=== PATIENT | female | born 1940 | race Caucasian/White ===

== ENCOUNTER 2016-07-30 19:50 | Emergency (ER) | payer MEDICARE, OTHER ==
--- OUTSIDE RECORDS SUMMARY | 2016-07-30 20:42 | XMS REPORT | Continuity of Care Document ---
:1940 Author Organization [facility] ([facility]) Address [address] [place] [address] Phone [phone] Care Team Providers Name Role Phone Bernard Landry Primary Care Provider [phone] Source Comments This disclosure is being made pursuant to the Care Everywhere program, applicable federal and state laws, and may not contain all informaitonavailable regarding this patient.[facility] ([facility]) Active Allergies and Adverse Reactions Allergen Noted Date Severity Reactions Comments Cephalexin 03/08/2015 Angioedema Lip, mouth swelling/pain Ciprofloxacin 01/31/2015 Angioedema Hydrocodone-Acetaminophen 06/25/2012 Rash Ibuprofen 01/25/2015 Nausea & Vomiting Penicillin 01/25/2015 Angioedema Sulfa (Sulfonamide 03/22/2012 OTHER,Rash Dyspnea Antibiotics) Current Medications Prescription Sig. Disp. Refills Start End Status Date Date calcium carbonate (500 Take 1 tablet by Active mg Ca) 1250 mg -vitamin mouth daily D 200 unit per tablet hydrochlorothiazide 25 Take 1 Tab by 30 Tab 11 11/24/19 Active mg tablet mouth daily. 14 Indications: EDEMA furosemide 20 mg tablet Take 2 Tabs by 60 Tab 11 08/11/19 Active mouth daily. 15 Indications: HYPERTENSION losartan 50 mg tablet Take 1 Tab (50 90 Tab 3 09/23/19 Active mg total) by 15 mouth daily ELIQUIS 5 mg tablet 11 12/02/19 Active 15 polyethylene Take as directed 4000 mL 0 01/26/20 Active glycol-electrolyte 15 (NULYTELY) suspension magnesium citrate Take as directed 296 mL 0 01/26/20 Active solution 15 loperamide 2 mg capsule Take 1 capsule 90 capsule 1 02/27/20 Active (2 mg total) by 15 mouth 3 times daily Lactobacillus Take 1 capsule 60 capsule 1 02/27/20 Active acidophilus (FLORAJEN) (460 mg total) 15 460 mg (20 billion by mouth 2 times cell) capsule daily omeprazole 20 mg Take 1 capsule 90 capsule 3 03/29/20 Active enteric coated capsule (20 mg total) by 15 mouth daily fenofibrate 134 mg Take 1 capsule 90 capsule 3 11/30/19 Active capsule (134 mg total) 16 by mouth every morning before breakfast. sucralfate 1000 mg Take 1 tablet 120 tablet 11 11/30/19 Active tablet (1,000 mg total) 16 by mouth before meals and at bedtime. pravastatin 40 mg Take 1 tablet 90 tablet 3 11/30/19 Active tablet (40 mg total) by 16 mouth every evening. traZODone 50 mg tablet Take 1.5 tablets 135 tablet 3 03/11/20 Active (75 mg total) by 16 mouth at bedtime. tiZANidine 2 mg tablet Take 1 tablet (2 90 tablet 3 03/11/20 Active mg total) by 16 mouth 2 times daily as needed. traMADol 50 mg tablet Take 2 tablets 240 tablet 3 03/11/20 Active (100 mg total) 16 by mouth 4 times daily as needed. allopurinol 300 mg Take 1 tablet 90 tablet 3 03/11/20 Active tablet (300 mg total) 16 by mouth daily. nitrofurantoin Take 1 capsule 20 capsule 0 03/21/20 Active (MACROBID) 100 mg (100 mg total) 16 capsule by mouth 2 times daily. ciprofloxacin HCl 500 Take 1 tablet 20 tablet 0 04/04/20 Active mg tablet (500 mg total) 16 by mouth 2 times daily. HYDROcodone-acetaminoph Take 1 tablet by 60 tablet 0 04/04/20 Active en 5-325 mg per tablet mouth every 6 16 hours as needed. LORazepam 1 mg tablet Take 1 tablet (1 90 tablet 1 05/06/20 Active mg total) by 16 mouth at bedtime as needed. oxybutynin 5 mg tablet Take 1 tablet (5 180 tablet 3 05/06/20 Active mg total) by 16 mouth 2 times daily. ciprofloxacin HCl 500 Take 1 tablet 20 tablet 0 05/16/20 Active mg tablet (500 mg total) 16 by mouth 2 times daily. nystatin 100,000 Take 5 mL by 200 mL 1 06/06/19 Active unit/mL suspension mouth 4 times 17 daily. Swish and swallow. potassium chloride 10 Take 2 tablets 180 tablet 3 07/19/19 Active mEq XR tablet (20 mEq total) 17 by mouth daily. Takes 2 in the AM. potassium chloride 10 Take 3 tablets 180 tablet 0 04/24/20 Discontinued mEq XR tablet (30 mEq total) 16 017 by mouth 2 times daily. 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 Requires hospitalization for IV meds. Fever, unspecified 05/31/2013 Gout 05/22/2012 HTN (hypertension) 03/22/2012 Hyperlipidemia 03/22/2012 Chronic pain 03/22/2012 Most Recent Encounters Date Type Specialty Providers Description 07/22/2016 Office Visit [facility] Darien Gunderson, Chief Comp: Patient PA-C Reported Reason For Visit 07/18/2016 Refill [facility] Jimmy Cook Dx: Hypokalemia DO (Primary Dx) 06/12/2016 Orders/Notes [facility] Flores - [facility] Rosalba Sepulveda CMA 06/06/2016 Office Visit [facility] Jimmy Cook Dx: Thrush of mouth DO and esophagus (Primary Dx) 05/16/2016 Orders/Notes Family Practice Jimmy Cook Dx: Acute bronchitis, DO unspecified organism (Primary Dx) 05/16/2016 Telephone Franklin Flores [facility] Jimmy Cook, Chief Comp: Other DO 05/05/2016 Refill [facility] Flores [facility] Jimmy Cook Dx: Mixed incontinence DO (Primary Dx) 05/05/2016 Refill Franklin Flores - [facility] Jimmy Cook Dx: Primary insomnia DO (Primary Dx) 05/05/2016 Refill [facility] Rizwana Buck, Dx: Primary insomnia PA-C (Primary Dx) Social History Tobacco Use Types Packs/Day Years Used Date Never Smoker Smokeless Tobacco: Never Used Alcohol Use Drinks/Week oz/Week Comments No Last Filed Vital Signs Vital Sign Reading Time Taken Blood Pressure 108/78 06/06/2016 10:31 AM 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 Pulse 64 06/06/2016 10:31 AM 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 Temperature 36.8 C (98.3 F) 06/06/2016 10:31 AM 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 Respiratory Rate 18 06/06/2016 10:31 AM 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 Height 1.676 m (5' 6") 01/25/2015 1:50 PM CDT Weight 65.499 kg (144 lb 6.4 oz) 06/06/2016 10:31 AM 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 Body Mass Index 23.32 06/06/2016 10:31 AM 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 Oxygen Saturation 98% 04/27/2015 6:42 AM 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 Plan of Care Health Maintenance Due Date Last Done Comments Hepatitis B Vaccine (1 of 3 - Primary Series) 1940 Tdap Vaccine 1949 Td Vaccine 1956 Mammogram 1978 Colonoscopy 04/02/1988 Zoster Vaccine 1998 Osteoporosis Screening (DXA Bone Density) 2003 Pneumococcal Vaccine (1 of 2 - PCV13) 2003 Influenza Vaccine: Seasonal (#1) 12/17/2015 Lipid Disorder Screening 08/12/2019 08/11/2014 Results from Last 3 Months Not on file
[2016-07-30 22:07] LABS: Hematocrit 39.3 % (37.0-47.0); Hemoglobin 13.4 gm/dL (12.5-16.0); Mean Cell Volume 91.8 fl (78-100); Mean Corpuscular Hemoglobin 31.3 pg (27-31); Mean Corpuscular Hgb Conc 34.1 g/dl (32-36); Mean Platelet Volume 11.7 fl (6.0-9.5); Neutrophil # 7.4 K/mm3 (1.3-6.0); Neutrophil % 73.6 % (42-75.0); Platelet Count 212 K/mm3 (150-450); Red Blood Count 4.28 M/mm3 (4.2-5.4); Red Cell Distribution Width 12.8 % (11.5-14.0); White Blood Count 10.1 K/mm3 (4.0-10.5)
[2016-07-30 22:16] LABS: ALT 17 U/L (19-67); AST 16 U/L (0-48); Albumin * 4.5 gm/dl (3.4-5.0); Alkaline Phosphatase * 48 U/L (50-170); Anion Gap 16.6 mmol/L (6.8-13.8); Bilirubin, Total 0.4 mg/dL (0.0-1.1); Blood Urea Nitrogen 21 mg/dL (3-23); Calcium * 8.7 mg/dL (7.9-10.9); Carbon Dioxide 26.8 mmol/L (24-32.6); Chloride 99 mmol/L (97-106); Glucose * 126 mg/dL (70-110); Potassium 3.4 mmol/L (3.4-4.6); Sodium 139 mmol/L (132-142); Total Protein 7.3 gm/dL (6.2-8.2)
[2016-07-30] MEDS ORDERED: IBUPROFEN 600 MG TABLET PO ONE (23:21)
[2016-07-30] MEDS ORDERED: IBUPROFEN 600 MG TABLET ONE (23:24)
--- NOTE | 2016-07-30 23:30 | ERNOTE ---
Lower Extremity HPI - Narrative Date of Service: 07/30/16 - General Time Seen by Provider: 07/30/16 20:35 Source: patient, family Exam Limitations: no limitations - Immun/Allergies/Home Medications Immunizations: IMMUNIZATION HX Immunizations Up to Date Yes History of Influenza Vaccine Yes Hx Pneumococcal Vaccination Yes Allergies/Adverse Reactions: Allergies Allergy/AdvReac Type Severity Reaction Status Date / Time cefdinir Allergy Unknown Verified 12/25/15 09:53 cephalexin Allergy Unknown Verified 12/25/15 09:53 ciprofloxacin [From Cipro] Allergy Unknown Verified 12/25/15 09:53 ciprofloxacin HCl Allergy Unknown Verified 12/25/15 09:53 [From Cipro] Penicillins Allergy Unknown Verified 12/25/15 09:53 acetaminophen [From Vicodin] AdvReac Mild RASH ON Verified 12/25/15 09:53 CHEST, ARMS AND LEGS hydrocodone bitartrate AdvReac Mild rash to Verified 12/25/15 09:53 [From Vicodin] chest, arms, legs Sulfa (Sulfonamide AdvReac Mild RASH, SORE Verified 12/25/15 09:53 Antibiotics) TONGUE [Sulfa(Sulfonamide Antibiotics)] Home Medications: HOME MEDICATIONS Oxybutynin Chloride [Ditropan Xl] 5 mg PO DAILY 05/26/12 [Last Taken Unknown] Potassium Chloride [Klor-Con M10] 20 meq PO BID 05/26/12 [Last Taken Unknown] Allopurinol [Zyloprim] 100 mg PO DAILY 09/15/15 [Last Taken Unknown] Apixaban [Eliquis] 5 mg PO BID 09/15/15 [Last Taken 10/19/15] Furosemide [Lasix] 40 mg PO DAILY 09/15/15 [Last Taken Unknown] Amiodarone HCl [Cordarone] 200 mg PO DAILY 07/30/16 [Last Taken Unknown] LORazepam [Ativan] 1 mg PO TID PRN 07/30/16 [Last Taken Unknown] Omeprazole 20 mg PO DAILY 07/30/16 [Last Taken Unknown] Pravastatin Sodium 40 mg PO HS 07/30/16 [Last Taken Unknown] Sucralfate [Carafate] 1 g PO 07/30/16 [Last Taken Unknown] amLODIPine BESYLATE [Norvasc] 5 mg PO DAILY 07/30/16 [Last Taken Unknown] traZODone HCL [Desyrel] 25 mg PO HS 07/30/16 [Last Taken Unknown] - History of Present Illness Narrative: She presents with 24-hour history of pain in the posterior aspect of the right knee. Denies any trauma or fall she denies any excessive use of right knee. She complains of pain mostly in the posterior aspect of the right knee. In the popliteal fossa. His any fevers or chills at this time. Review of Systems - Review of Systems Constitutional: Present: no symptoms reported EYE: Present: no symptoms reported ENT: Present: no symptoms reported Respiratory: Present: no symptoms reported Gastrointestinal/Abdominal: Present: no symptoms reported Musculoskeletal: Present: See HPI Skin: Present: no symptoms reported Neurological: Present: no symptoms reported - Patient's Past Medical History Patient History - Medical: Cataracts, Chronic Pain, Fibromyalgia, GERD, Osteoarthritis, Osteoporosis Patient History - Cardiac/Respiratory: Atrial Fibrillation, Coronary Heart Disease, Other Patient History - Cancer: No Hx of Cancer Patient History - Surgical Procedures: Appendectomy, Cataracts, Cholecystectomy , Hysterectomy, Other, Total Knee Replacement Patient History - Other: None - Family History Mother Family History - Medical: , Arthritis Family History - Cardiac/Respiratory: Hypertension Father Family History - Medical: - Social History Living Situations: home Abuse History: No History of abuse Psych History: No pertinent hx Smoking Status: Former smoker Have you smoked in the past 12 months: No Do you dip or chew tobacco: No Alcohol Use: none Drug Use: none - Immunizations Immunizations Up to Date: Yes Hx Pneumococcal Vaccination: Yes History of Influenza Vaccine: Yes Physical Exam - Physical Exam General Appearance: Present: wd/wn, alert, no apparent distress Respiratory: Present: no respiratory distress, normal breath sounds Extremity Exam: Present: other - patient has had surgery on her right knee remotely incision is a fully healed up. There is no redness noted anywhere on the knee or posteriorly, patient is exquisitely tender in the posterior aspect of the right knee. It is no warmth or redness. There is mild swelling of the knee joint on the right side. Patient has tenderness with straightening the knee. ED Progress - Results and Orders Patient's Lab Results:: I have reviewed the patient's lab results. - d-dimer is negative, ultrasound is negative for DVT, patient's blood tests are essentially within normal limits. Her sound reveals a possible Olivares cyst. - Vital Signs Patient's Vital Signs:: I have reviewed the patient's vital signs. Vital Signs: Vital Signs 07/30/16 20:00 Temperature 36.5 C Pulse Rate 56 L Respiratory 18 Rate Blood Pressure 151/73 O2 Sat by Pulse 98 Oximetry - Progress/Reassessment Chief Complaint: Lower Extremity Pain/ Injury Plan - Plan Plan: Patient has a Olivares's cyst which has caused pain and inflammation in the right knee. He will treat with pressure dressing, times inflammatory elevation and ice, and patient is to follow-up with her primary care physician in 24 hours. Departure Clinical Impression: Olivares's cyst of knee Qualifiers: Laterality: right Qualified Code(s): M71.21 - Synovial cyst of popliteal space [Olivares], right knee - Departure Disposition: Home self-care Condition: Good Instructions: Olivares Cyst Referrals: Bernard Landry DO [Primary Care Provider] -
[2016-07-30 23:39] VITALS: BP 149/71
== END 2016-07-30 23:30 | disposition home or self-care (01) ==
LOC: ER 19:50
DX: M71.21 Synovial cyst of popliteal space [Baker], right knee (principal); I48.91 Unspecified atrial fibrillation; Z79.01 Long term (current) use of anticoagulants; K21.9 Gastro-esophageal reflux disease without esophagitis

== ENCOUNTER 2016-08-21 08:15 | Emergency (ER) | payer MEDICARE, OTHER ==
--- OUTSIDE RECORDS SUMMARY | 2016-08-21 08:33 | XMS REPORT | Continuity of Care Document ---
:1940 Author Organization [facility] ([facility]) Address [address] [place] [address] Phone [phone] Care Team Providers Name Role Phone Bernard Landry Primary Care Provider [phone] Source Comments This disclosure is being made pursuant to the Care Everywhere program, applicable federal and state laws, and may not contain all informaitonavailable regarding this patient.[facility] ([facility]) Active Allergies and Adverse Reactions Allergen Noted Date Severity Reactions Comments Cephalexin 03/08/2015 Angioedema Lip, mouth swelling/pain Ciprofloxacin 01/31/2015 Angioedema Hydrocodone-Acetaminophen 06/25/2012 Rash Ibuprofen 01/25/2015 Nausea & Vomiting Penicillin 01/25/2015 Angioedema Sulfa (Sulfonamide 03/22/2012 OTHER,Rash Dyspnea Antibiotics) Current Medications Prescription Sig. Disp. Refills Start Date End Date Status calcium carbonate (500 Take 1 tablet by Active mg Ca) 1250 mg -vitamin mouth daily D 200 unit per tablet hydrochlorothiazide 25 Take 1 Tab by 30 Tab 11 11/23/2013 Active mg tablet mouth daily. Indications: EDEMA furosemide 20 mg tablet Take 2 Tabs by 60 Tab 11 08/10/2014 Active mouth daily. Indications: HYPERTENSION losartan 50 mg tablet Take 1 Tab (50 mg 90 Tab 3 09/22/2014 Active total) by mouth daily ELIQUIS 5 mg tablet 11 12/01/2014 Active polyethylene Take as directed 4000 mL 0 01/25/2015 Active glycol-electrolyte (NULYTELY) suspension magnesium citrate Take as directed 296 mL 0 01/25/2015 Active solution loperamide 2 mg capsule Take 1 capsule (2 90 capsule 1 02/26/2015 Active mg total) by mouth 3 times daily Lactobacillus Take 1 capsule 60 capsule 1 02/26/2015 Active acidophilus (FLORAJEN) (460 mg total) by 460 mg (20 billion cell) mouth 2 times capsule daily omeprazole 20 mg enteric Take 1 capsule 90 capsule 3 03/29/2015 Active coated capsule (20 mg total) by mouth daily fenofibrate 134 mg Take 1 capsule 90 capsule 3 11/30/2015 Active capsule (134 mg total) by mouth every morning before breakfast. sucralfate 1000 mg Take 1 tablet 120 tablet 11 11/30/2015 Active tablet (1,000 mg total) by mouth before meals and at bedtime. pravastatin 40 mg tablet Take 1 tablet (40 90 tablet 3 11/30/2015 Active mg total) by mouth every evening. traZODone 50 mg tablet Take 1.5 tablets 135 tablet 3 03/11/2016 Active (75 mg total) by mouth at bedtime. tiZANidine 2 mg tablet Take 1 tablet (2 90 tablet 3 03/11/2016 Active mg total) by mouth 2 times daily as needed. traMADol 50 mg tablet Take 2 tablets 240 tablet 3 03/11/2016 Active (100 mg total) by mouth 4 times daily as needed. allopurinol 300 mg Take 1 tablet 90 tablet 3 03/11/2016 Active tablet (300 mg total) by mouth daily. nitrofurantoin Take 1 capsule 20 capsule 0 03/21/2016 Active (MACROBID) 100 mg (100 mg total) by capsule mouth 2 times daily. ciprofloxacin HCl 500 mg Take 1 tablet 20 tablet 0 04/04/2016 Active tablet (500 mg total) by mouth 2 times daily. HYDROcodone-acetaminophe Take 1 tablet by 60 tablet 0 04/04/2016 Active n 5-325 mg per tablet mouth every 6 hours as needed. LORazepam 1 mg tablet Take 1 tablet (1 90 tablet 1 05/06/2016 Active mg total) by mouth at bedtime as needed. oxybutynin 5 mg tablet Take 1 tablet (5 180 tablet 3 05/06/2016 Active mg total) by mouth 2 times daily. ciprofloxacin HCl 500 mg Take 1 tablet 20 tablet 0 05/16/2016 Active tablet (500 mg total) by mouth 2 times daily. nystatin 100,000 unit/mL Take 5 mL by 200 mL 1 06/06/2016 Active suspension mouth 4 times daily. Swish and swallow. potassium chloride 10 Take 2 tablets 180 tablet 3 07/18/2016 Active mEq XR tablet (20 mEq total) by mouth daily. Takes 2 in the AM. Active Problems Problem Noted Date Urinary tract infection, recurrent 05/31/2013 Overview: 05/31/13 sp. morganella morganii--resistant to all oral antibiotics. Requires hospitalization for IV meds. Fever, unspecified 05/31/2013 Gout 05/22/2012 HTN (hypertension) 03/22/2012 Hyperlipidemia 03/22/2012 Chronic pain 03/22/2012 Most Recent Encounters Date Type Specialty Providers Description 07/22/2016 Office Visit [facility] Darien Gunderson, Chief Comp: Patient PA-C Reported Reason For Visit 07/18/2016 Refill Franklin Flores [facility] Dx: Hypokalemia DO (Primary Dx) 06/12/2016 Orders/Notes Franklin Flores [facility] Rosalba Sepulveda CMA 06/06/2016 Office Visit Franklin Flores [facility] Jimmy Cook Dx: Thrush of mouth DO and esophagus (Primary Dx) Social History Tobacco Use Types Packs/Day Years Used Date Never Smoker Smokeless Tobacco: Never Used Alcohol Use Drinks/Week oz/Week Comments No Last Filed Vital Signs Vital Sign Reading Time Taken Blood Pressure 108/78 06/06/2016 10:31 AM 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
--- NOTE | 2016-08-21 08:40 | ERNOTE ---
Lower Extremity HPI - General Lower Extremities Pain: knee: right Time Seen by Provider: 08/21/16 08:26 Source: patient Exam Limitations: no limitations - Immun/Allergies/Home Medications Immunizations: IMMUNIZATION HX Immunizations Up to Date Yes History of Influenza Vaccine Yes Hx Pneumococcal Vaccination Yes Allergies/Adverse Reactions: Allergies Allergy/AdvReac Type Severity Reaction Status Date / Time cefdinir Allergy Unknown Verified 08/21/16 08:24 cephalexin Allergy Unknown Verified 08/21/16 08:24 ciprofloxacin [From Cipro] Allergy Unknown Verified 08/21/16 08:24 ciprofloxacin HCl Allergy Unknown Verified 08/21/16 08:24 [From Cipro] Penicillins Allergy Unknown Verified 08/21/16 08:24 acetaminophen [From Vicodin] AdvReac Mild RASH ON Verified 08/21/16 08:24 CHEST, ARMS AND LEGS hydrocodone bitartrate AdvReac Mild rash to Verified 08/21/16 08:24 [From Vicodin] chest, arms, legs Sulfa (Sulfonamide AdvReac Mild RASH, SORE Verified 08/21/16 08:24 Antibiotics) TONGUE [Sulfa(Sulfonamide Antibiotics)] Home Medications: HOME MEDICATIONS Oxybutynin Chloride [Ditropan Xl] 5 mg PO DAILY 05/26/12 [Last Taken Unknown] Potassium Chloride [Klor-Con M10] 20 meq PO BID 05/26/12 [Last Taken Unknown] Allopurinol [Zyloprim] 100 mg PO DAILY 09/15/15 [Last Taken Unknown] Apixaban [Eliquis] 5 mg PO BID 09/15/15 [Last Taken 10/19/15] Furosemide [Lasix] 40 mg PO DAILY 09/15/15 [Last Taken Unknown] Amiodarone HCl [Cordarone] 200 mg PO DAILY 07/30/16 [Last Taken Unknown] LORazepam [Ativan] 1 mg PO TID PRN 07/30/16 [Last Taken Unknown] Omeprazole 20 mg PO DAILY 07/30/16 [Last Taken Unknown] Pravastatin Sodium 40 mg PO HS 07/30/16 [Last Taken Unknown] Sucralfate [Carafate] 1 g PO DAILY 07/30/16 [Last Taken Unknown] amLODIPine BESYLATE [Norvasc] 5 mg PO DAILY 07/30/16 [Last Taken Unknown] traZODone HCL [Desyrel] 25 mg PO HS 07/30/16 [Last Taken Unknown] - History of Present Illness Narrative: Patient states that she fell 2 or 3 days ago when she tripped on a step leading into her apartment. She landed on her knees, was able to get up herself and ambulate, denies any other injuries but started to have pain and swelling in her right knee last night. She took two hydrocodone at 05:30, denies any other symptoms. She also noticed bruising on her right thigh that was there before the fall. She is on elliquis for a-fib. Two weeks ago she was seen in the ER for right leg pain and diagnosed with a bliss's cyst. Occurred: other Location of Incident: home Method of Injury: Reports: fell Reason for Fall: Reports: tripped Loss of Consciousness: Reports: no loss of consciousness Other Injuries: Reports: none Subsequent Symptoms: Denies: sensory loss, numbness, motor loss Review of Systems - Review of Systems Constitutional: Absent: recent illness, fever ENT: Absent: sore throat Respiratory: Absent: shortness of breath Cardiology: Absent: chest pain, palpitations Gastrointestinal/Abdominal: Absent: nausea, abdominal pain Genitourinary: Present: no symptoms reported Musculoskeletal: Present: See HPI Skin: Absent: rash Neurological: Absent: weakness, numbness - Patient's Past Medical History Patient History - Medical: Cataracts, Chronic Pain, Fibromyalgia, GERD, Osteoarthritis, Osteoporosis Patient History - Cardiac/Respiratory: Atrial Fibrillation, Coronary Heart Disease, Other Patient History - Cancer: No Hx of Cancer Patient History - Surgical Procedures: Appendectomy, Cataracts, Cholecystectomy , Hysterectomy, Other, Total Knee Replacement Patient History - Other: None - Family History Mother Family History - Medical: , Arthritis Family History - Cardiac/Respiratory: Hypertension Father Family History - Medical: - Social History Living Situations: home Abuse History: No History of abuse Psych History: No pertinent hx Alcohol Use: none Drug Use: none - Immunizations Immunizations Up to Date: Yes Hx Pneumococcal Vaccination: Yes History of Influenza Vaccine: Yes Physical Exam - Physical Exam General Appearance: Present: wd/wn, alert, no apparent distress Ears, Nose, Throat: Present: normal ENT inspection Neck: Present: normal inspection, nontender, supple Respiratory: Present: no respiratory distress, normal breath sounds, no accessory muscle use, chest nontender, lungs clear Cardiovascular/Chest: Present: regular rate, rhythm, no murmur Back Exam: Present: no vertebral tenderness Extremity Exam: Present: normal inspection, normal except -, joint swelling - right knee, other - full ROM, no focal tenderness, no erythema, no increased temp Neurological Exam: Present: alert, oriented, normal mood/affect, no motor/ sensory deficits Skin Exam: Present: normal color, warm/dry ED Progress - Vital Signs Patient's Vital Signs:: I have reviewed the patient's vital signs. Vital Signs: Vital Signs 08/21/16 08:19 Temperature 36.8 C Pulse Rate 51 L Respiratory 12 Rate Blood Pressure 125/64 O2 Sat by Pulse 97 Oximetry - X-Ray X-Ray #1 X-Ray: knee - no acute findings, stable large effusion Interpretation: Reviewed by me - Progress/Reassessment Chief Complaint: Lower Extremity Pain/ Injury Progress Note-Subjective: 08/21/16 10:02 discussed results with patient and family Departure Clinical Impression: Knee effusion, right Knee pain, right Qualifiers: Chronicity: acute Qualified Code(s): M25.561 - Pain in right knee - Departure Disposition: Home self-care Condition: Good Instructions: Knee Effusion, Cutx-bc-Fcap Additional Instructions: take your pain medication as prescribed call the orthopedic clinic for follow up Referrals: Bernard Landry DO [Primary Care Provider] - Imer Medrano MD [Staff Physician] -
[2016-08-21 09:44] VITALS: BP 124/86
== END 2016-08-21 10:07 | disposition home or self-care (01) ==
LOC: ER 08:15
DX: M25.461 Effusion, right knee (principal); M25.561 Pain in right knee; I48.91 Unspecified atrial fibrillation; Z79.01 Long term (current) use of anticoagulants; I51.9 Heart disease, unspecified; K21.9 Gastro-esophageal reflux disease without esophagitis

== ENCOUNTER 2017-01-19 09:39 | Emergency (ER) | payer MEDICARE, OTHER ==
[2017-01-19 10:05] VITALS: BP 121/77
[2017-01-19 10:19] LABS: Urine Bilirubin Negative (NEGATIVE); Urine Blood 25 /ul (NEGATIVE); Urine Ketone Negative (NEGATIVE); Urine Protein Negative (NEGATIVE); Urine Specific Gravity <=1.005 SP.GR. (1.005-1.010); Urine Urobilinogen Normal (NORMAL); Urine pH 6.5 pH (5.0-7.0)
[2017-01-19 10:28] LABS: Urine Appearance Clear; Urine Color Pale Yellow; Urine Nitrite Positive (NEGATIVE)
[2017-01-19 10:29] LABS: Urine Bacteria 2+; Urine RBC 0-5 /hpf (0-5); Urine Yeast Few - 1+
--- NOTE | 2017-01-19 10:31 | ERNOTE ---
ER Female HPI Stated Complaint: UTI Presenting Symptoms: dysuria Time Seen by Provider: 01/19/17 10:06 Source: patient Immunizations: IMMUNIZATION HX Immunizations Up to Date Yes History of Influenza Vaccine Yes Hx Pneumococcal Vaccination Yes Allergies/Adverse Reactions: Allergies cefdinir Allergy (Unknown, Verified 08/21/16 08:24) cephalexin Allergy (Unknown, Verified 08/21/16 08:24) ciprofloxacin [From Cipro] Allergy (Unknown, Verified 08/21/16 08:24) ciprofloxacin HCl [From Cipro] Allergy (Unknown, Verified 08/21/16 08:24) acetaminophen [From Vicodin] Adverse Reaction (Mild, Verified 08/21/16 08:24) RASH ON CHEST, ARMS AND LEGS hydrocodone bitartrate [From Vicodin] Adverse Reaction (Mild, Verified 08/21/16 08:24) rash to chest, arms, legs Sulfa (Sulfonamide Antibiotics) [Sulfa(Sulfonamide Antibiotics)] Adverse Reaction (Mild, Verified 08/21/16 08:24) RASH, SORE TONGUE Home Medications: HOME MEDICATIONS Oxybutynin Chloride [Ditropan Xl] 5 mg PO DAILY 05/26/12 [Last Taken Unknown] Potassium Chloride [Klor-Con M10] 20 meq PO BID 05/26/12 [Last Taken Unknown] Apixaban [Eliquis] 5 mg PO BID 09/15/15 [Last Taken 10/19/15] Furosemide [Lasix] 40 mg PO DAILY 09/15/15 [Last Taken Unknown] LORazepam [Ativan] 1 mg PO TID PRN 07/30/16 [Last Taken Unknown] Omeprazole 20 mg PO DAILY 07/30/16 [Last Taken Unknown] Pravastatin Sodium 40 mg PO HS 07/30/16 [Last Taken Unknown] Sucralfate [Carafate] 1 g PO DAILY 07/30/16 [Last Taken Unknown] traZODone HCL [Desyrel] 25 mg PO HS 07/30/16 [Last Taken Unknown] Ampicillin Trihydrate 500 mg PO TID #30 capsule 01/19/17 [Last Taken Unknown] - History of Present Illness Narrative: Patient presents with a recurrent UTI. She has been treated multiple times for this however she is allergic to most everything that we could put her on to help with this. She presents with dysuria that is no more than moderate intensity. Timing: Present: constant Quality: Present: moderate Onset Location: Present: suprapubic Radiation: Present: none Activities at Onset: Present: none Prior Abdominal Problems: Present: similar symptoms - with the UTI Sexual Laie History: Present: not active Associated Symptoms: Present: denies symptoms Review of Systems - Review of Systems Constitutional: Present: See HPI EYE: Present: no symptoms reported ENT: Present: no symptoms reported Respiratory: Present: no symptoms reported Cardiology: Present: no symptoms reported Gastrointestinal/Abdominal: Present: no symptoms reported Genitourinary: Present: See HPI, frequency, dysuria Musculoskeletal: Present: no symptoms reported Skin: Present: no symptoms reported Neurological: Present: no symptoms reported Endocrine: Present: no symptoms reported Hematologic/Lymphatic: Present: no symptoms reported Psych: Present: no symptoms reported - Patient's Past Medical History Patient History - Medical: Cataracts, Chronic Pain, Fibromyalgia, GERD, Osteoarthritis, Osteoporosis Patient History - Cardiac/Respiratory: Atrial Fibrillation, Coronary Heart Disease, Other Patient History - Cancer: No Hx of Cancer Patient History - Surgical Procedures: Appendectomy, Cataracts, Cholecystectomy , Hysterectomy, Other, Total Knee Replacement Patient History - Other: None - Family History Mother Family History - Medical: , Arthritis Family History - Cardiac/Respiratory: Hypertension Father Family History - Medical: - Social History Living Situations: spouse Abuse History: No History of abuse Psych History: No pertinent hx Smoking Status: Former smoker Have you smoked in the past 12 months: No Do you dip or chew tobacco: No Alcohol Use: none Drug Use: none - Immunizations Immunizations Up to Date: Yes Hx Pneumococcal Vaccination: Yes History of Influenza Vaccine: Yes Physical Exam - Physical Exam General Appearance: Present: wd/wn, alert, mild distress Eye Exam: Normal inspection: bilateral, PERRL: bilateral Ears, Nose, Throat: Present: normal ENT inspection, H, normal pharynx Neck: Present: normal inspection, nontender Respiratory: Present: no respiratory distress, normal breath sounds, no accessory muscle use, chest nontender, lungs clear Cardiovascular/Chest: Present: regular rate, rhythm, no murmur, normal peripheral pulses Gastrointestinal/Abdominal: Present: normal bowel sounds, nondistended, soft, no organomegaly, tenderness - suprapubic Rectal Exam: Present: deferred Back Exam: Present: normal inspection, normal range of motion Extremity Exam: Present: normal inspection, non-tender, no edema, normal range of motion Neurological Exam: Present: alert, oriented, normal mood/affect Skin Exam: Present: normal color, warm/dry Lymphatic Exam: Present: no adenopathy ED Progress - Results and Orders Patient's Lab Results:: I have reviewed the patient's lab results. - Vital Signs Patient's Vital Signs:: I have reviewed the patient's vital signs. Vital Signs: Vital Signs 01/19/17 10:01 Temperature 36.6 C Pulse Rate 65 Respiratory 14 Rate Blood Pressure 121/77 O2 Sat by Pulse 98 Oximetry - Progress/Reassessment Chief Complaint: Genitourinary Problem Plan - Plan Plan: Patient will obviously need to be treated with antibiotics, and her profound allergies post somewhat of a problem. Looking at old laboratory examination and microbiology she is always appeared to be susceptible to ampicillin and is at is not an allergy we will start her on that for this infection. She agrees to follow-up with her family physician in 10 days to have her urine rechecked. Departure Clinical Impression: Urinary tract infection Qualifiers: Urinary tract infection type: acute cystitis Hematuria presence: with hematuria Qualified Code(s): N30.01 - Acute cystitis with hematuria - Departure Disposition: Home self-care Condition: Good Instructions: Urinary Tract Infection, Adult, [id number] Referrals: Bernard Landry DO [Primary Care Provider] - Prescriptions: Ampicillin Trihydrate 500 mg PO TID #30 capsule
== END 2017-01-19 10:50 | disposition home or self-care (01) ==
LOC: ER 09:39
DX: N30.01 Acute cystitis with hematuria (principal); G89.29 Other chronic pain; K21.9 Gastro-esophageal reflux disease without esophagitis; M79.7 Fibromyalgia; I48.91 Unspecified atrial fibrillation; Z79.01 Long term (current) use of anticoagulants; I25.2 Old myocardial infarction

== ENCOUNTER 2017-03-29 09:18 | Emergency (ER) | payer MEDICARE, OTHER ==
[2017-03-29 09:35] VITALS: BP 128/64
--- NOTE | 2017-03-29 10:02 | ERNOTE ---
Integumentary HPI - General Presenting Symptoms: rash Time Seen by Provider: 03/29/17 09:46 Source: patient Exam Limitations: no limitations - Immun/Allergies/Home Medications Immunizations: IMMUNIZATION HX Immunizations Up to Date Yes History of Influenza Vaccine Yes Hx Pneumococcal Vaccination Yes Allergies/Adverse Reactions: Allergies Allergy/AdvReac Type Severity Reaction Status Date / Time cefdinir Allergy Unknown Verified 03/29/17 09:37 cephalexin Allergy Unknown Verified 03/29/17 09:37 ciprofloxacin [From Cipro] Allergy Unknown Verified 03/29/17 09:37 ciprofloxacin HCl Allergy Unknown Verified 03/29/17 09:37 [From Cipro] Sulfa (Sulfonamide AdvReac Mild RASH, SORE Verified 03/29/17 09:37 Antibiotics) TONGUE [Sulfa(Sulfonamide Antibiotics)] Home Medications: HOME MEDICATIONS Oxybutynin Chloride [Ditropan Xl] 5 mg PO DAILY 05/26/12 [Last Taken Unknown] Potassium Chloride [Klor-Con M10] 20 meq PO BID 05/26/12 [Last Taken Unknown] Apixaban [Eliquis] 5 mg PO BID 09/15/15 [Last Taken 10/19/15] Furosemide [Lasix] 40 mg PO DAILY 09/15/15 [Last Taken Unknown] LORazepam [Ativan] 1 mg PO TID PRN 07/30/16 [Last Taken Unknown] Omeprazole 20 mg PO DAILY 07/30/16 [Last Taken Unknown] Pravastatin Sodium 40 mg PO HS 07/30/16 [Last Taken Unknown] Sucralfate [Carafate] 1 g PO DAILY 07/30/16 [Last Taken Unknown] traZODone HCL [Desyrel] 25 mg PO HS PRN 07/30/16 [Last Taken Unknown] Famotidine [Pepcid] 20 mg PO BID #10 tablet 03/29/17 [Last Taken Unknown] hydrOXYzine PAMOATE [Vistaril] 25 mg PO Q4H PRN #20 cap 03/29/17 [Last Taken Unknown] predniSONE [Deltasone] 20 mg PO BID #10 tablet 03/29/17 [Last Taken Unknown] - History of Present Illness Narrative: Patient presents with a rash on her face and scalp hands and neck. Onset of symptoms was several days ago and appeared to be worse yesterday on the neck however when it was mostly on the face and hands. She states that the rash is itchy and has a mild burning sensation to it. Location: Reports: scalp, facial, hands Quality: Reports: itching, burning Severity: moderate Exposure: Reports: no cause identified Modifying Factors - (Improves): Reports: nothing Modifying Factors - (Worsens): Reports: nothing Associated Symptoms: Reports: rash Review of Systems - Review of Systems Constitutional: Present: See HPI EYE: Present: no symptoms reported ENT: Present: no symptoms reported Respiratory: Present: no symptoms reported Cardiology: Present: no symptoms reported Gastrointestinal/Abdominal: Present: no symptoms reported Genitourinary: Present: no symptoms reported Musculoskeletal: Present: no symptoms reported Skin: Present: See HPI, change in color - erythema Neurological: Present: no symptoms reported Endocrine: Present: no symptoms reported Hematologic/Lymphatic: Present: no symptoms reported Psych: Present: no symptoms reported - Patient's Past Medical History Patient History - Medical: Cataracts, Chronic Pain, Fibromyalgia, GERD, Osteoarthritis, Osteoporosis Patient History - Cardiac/Respiratory: Atrial Fibrillation, Coronary Heart Disease, Other Patient History - Cancer: No Hx of Cancer Patient History - Surgical Procedures: Appendectomy, Cataracts, Cholecystectomy , Hysterectomy, Other, Total Knee Replacement Patient History - Other: None LMP (females 10-50): Menopausal - Family History Mother Family History - Medical: , Arthritis Family History - Cardiac/Respiratory: Hypertension Family History - Cancer: No pertinent family hx Father Family History - Medical: , Rheumatoid Arthritis Family History - Cardiac/Respiratory: History Unknown Family History - Cancer: History Unknown - Social History Living Situations: spouse Abuse History: No History of abuse Psych History: No pertinent hx Smoking Status: Never smoker Have you smoked in the past 12 months: No Alcohol Use: none Drug Use: none - Immunizations Immunizations Up to Date: Yes Hx Pneumococcal Vaccination: Yes History of Influenza Vaccine: Yes Physical Exam - Physical Exam General Appearance: Present: wd/wn, alert, mild distress Head Exam: Present: normal inspection Eye Exam: Normal inspection: bilateral, PERRL: bilateral Ears, Nose, Throat: Present: normal ENT inspection, H, normal pharynx Neck: Present: normal inspection, nontender Respiratory: Present: no respiratory distress, normal breath sounds, no accessory muscle use, chest nontender, lungs clear Cardiovascular/Chest: Present: regular rate, rhythm, no murmur, normal peripheral pulses Gastrointestinal/Abdominal: Present: normal bowel sounds, nontender, nondistended, soft, no organomegaly Rectal Exam: Present: deferred Back Exam: Present: normal inspection, normal range of motion Extremity Exam: Present: normal inspection, non-tender, no edema, normal range of motion Neurological Exam: Present: alert, oriented, normal mood/affect Skin Exam: Present: skin rash - erythematous with wheal-like appearance on the forehead, cheeks and hands Lymphatic Exam: Present: no adenopathy ED Progress - Vital Signs Patient's Vital Signs:: I have reviewed the patient's vital signs. Vital Signs: Vital Signs 03/29/17 09:22 Temperature 37.0 C Pulse Rate 88 Respiratory 20 Rate Blood Pressure 128/64 O2 Sat by Pulse 99 Oximetry - Progress/Reassessment Chief Complaint: Rash Plan - Plan Plan: The rash has the appearance of a contact dermatitis and we discussed possible allergens being shampoo, cream rinses or hand/facial soap. Patient states that she will try different products and we will start her on prednisone, Pepcid and Vistaril for the itching. She agrees to follow-up with her family physician this week. Departure Clinical Impression: Contact allergic reaction - Departure Disposition: Home self-care Condition: Good Instructions: Contact Dermatitis, [id number] Referrals: Bernard Landry DO [Primary Care Provider] - Prescriptions: Famotidine [Pepcid] 20 mg PO BID #10 tablet hydrOXYzine PAMOATE [Vistaril] 25 mg PO Q4H PRN #20 cap PRN Reason: Itching predniSONE [Deltasone] 20 mg PO BID #10 tablet
== END 2017-03-29 10:05 | disposition home or self-care (01) ==
LOC: ER 09:18
DX: L23.9 Allergic contact dermatitis, unspecified cause (principal); G89.29 Other chronic pain; K21.9 Gastro-esophageal reflux disease without esophagitis; M19.90 Unspecified osteoarthritis, unspecified site; I48.91 Unspecified atrial fibrillation; Z79.01 Long term (current) use of anticoagulants; I25.2 Old myocardial infarction